=== PATIENT | female | born 1945 | race Hispanic/Latino ===

== ENCOUNTER 2020-02-21 06:28 | Observation (INO) | payer MEDICARE ==
[2020-02-17 08:44] LABS: BASOPHILS # (AUTO) 0.1 (0.0-0.1); BASOPHILS % 0.6 % (0.0-1.0); EOSINOPHILS # (AUTO) 0.1 (0.0-0.4); EOSINOPHILS % 1.4 % (0.0-6.0); HEMATOCRIT 43.3 % (34.2-44.1); HEMOGLOBIN 14.6 g/dL (12.0-16.0); LYMPHOCYTES # (AUTO) 2.2 (1.0-3.2); LYMPHOCYTES % 22.3 % (18.0-39.1); MEAN CORPUSCULAR HEMOGLOBIN 27.9 pg (28-32); MEAN CORPUSCULAR HGB CONC 33.7 g/dL (31-35); MEAN CORPUSCULAR VOLUME 82.8 fL (81-99); MONOCYTES # (AUTO) 0.7 (0.2-0.8); MONOCYTES % 6.7 % (4.4-11.3); NEUTROPHILS # (AUTO) 6.9 (2.1-6.9); NEUTROPHILS % 68.6 % (38.7-80.0); PLATELET COUNT 264 x10e3/uL (140-360); RED BLOOD COUNT 5.23 x10e6/uL (3.6-5.1); RED CELL DISTRIBUTION WIDTH 13.2 % (11.7-14.4)
[2020-02-17 09:04] LABS: ANION GAP 15.6 mmol/L (8-16); BLOOD UREA NITROGEN 12 mg/dL (7-26); BUN/CREATININE RATIO 14 (6-25); CALCIUM 8.7 mg/dL (8.4-10.2); CARBON DIOXIDE 24 mmol/L (22-29); CHLORIDE 104 mmol/L (98-107); CREATININE, SERUM 0.85 mg/dL (0.57-1.11); EST GLOMERULAR FILTRATION RATE > 60 ML/MIN (60-); GLUCOSE 199 mg/dL (74-118); POTASSIUM 3.6 mmol/L (3.5-5.1); SODIUM 140 mmol/L (136-145)
[~2020-02-21] VITALS: Ht 165.1 cm; Wt 101.6 kg
[~2020-02-21 06:28] MED LIST: AMLODIPINE BESYL5 MG PO; ASPIRIN81 MG PO; HYDROCHLOROTHIA25 MG PO; METFORMIN HCL500 MG PO; METOPROLOL SUCC50 MG PO; PRAVACHOL20 MG PO
[2020-02-21] MEDS ORDERED: CELECOXIB 200 MG CAP ONE (07:24)
[2020-02-21] MEDS ORDERED: GABAPENTIN 300 MG CAP ONE (07:24)
[2020-02-21] MEDS ORDERED: DEXAMETHASONE SOD PHOS 10 MG/1 ML VIAL ONE (07:24)
[2020-02-21] MEDS ORDERED: CEFAZOLIN SOD 1 GM/NS 50ML 100 ML IV ONE (07:25)
[2020-02-21] MEDS ORDERED: calcium PO (07:48)
[2020-02-21] MEDS ORDERED: VITAMIN B-121000 MCG PO (07:48)
[2020-02-21] MEDS ORDERED: VITAMIN D3250 MCG PO (07:49)
[2020-02-21] MEDS ORDERED: SODIUM CHLORIDE 0.9% 500ML 500 ML ONE (07:57)
[2020-02-21] MEDS ORDERED: VANCOMYCIN HCL 1,000 MG ONE (07:57)
[2020-02-21] MEDS ORDERED: TRANEXAMIC ACID 1,000 MG/10 ML ML ONE (07:57)
[2020-02-21] MEDS ORDERED: INSULIN REGULAR, HUMAN 100 UNIT/1 ML 3ML VIAL ONE (07:59)
[2020-02-21] MEDS ORDERED: ROPIVACAINE 246.25 MG, EPINEPHRINE HCL 1:1000 1ML 0.5 MG, CLONIDINE HCL 0.08 MG, KETORO... INJ ONE ×5 (08:00)
[2020-02-21] MEDS ORDERED: HYDROCODONE/APAP 7.5MG-325MG 1 EA TAB PO PRN (10:00)
[2020-02-21] MEDS ORDERED: HYDROCODONE/APAP 5MG-325MG TAB PO PRN (10:00)
[2020-02-21] MEDS ORDERED: DIPHENHYDRAMINE HCL INJ 50 MG/ML VIAL IV PRN (10:00)
[2020-02-21] MEDS ORDERED: KETOROLAC TROMETHAMINE 30 MG/ML VIAL IV PRN (10:00)
[2020-02-21] MEDS ORDERED: ONDANSETRON HCL INJ 2MG/ML 2ML 2 MG/ML VIAL IV PRN (10:00)
[2020-02-21] MEDS ORDERED: ACETAMINOPHEN 650 MG SUPP PR PRN (10:00)
[2020-02-21] MEDS ORDERED: DOCUSATE SODIUM 100 MG CAP PO PRN (10:00)
[2020-02-21] MEDS: SODIUM CHLORIDE 0.9% 1000ML 1,000 ML IV SCH ×2 (11:45→20:00)
[2020-02-21 11:48] VITALS: BP 105/63
[2020-02-21] MEDS ORDERED: ACETAMINOPHEN 1000 MG/100 ML IV PRN (12:00)
[2020-02-21] MEDS ORDERED: ROPIVACAINE 0.5% 5 MG/ML 30 ML SDV ONE (12:21)
[2020-02-21 13:00] VITALS: BP 105/63
[2020-02-21] MEDS ORDERED: DEXAMETHASONE SOD PHOS INJ 4 MG/ML VIAL ONE (13:20)
[2020-02-21] MEDS ORDERED: SEVOFLURANE INHAL SOLN 250 ML PEN BTL ONE (13:20)
[2020-02-21] MEDS ORDERED: FAMOTIDINE 20 MG/2 ML VIAL IV ONE (13:20)
[2020-02-21] MEDS ORDERED: ONDANSETRON HCL INJ 2MG/ML 2ML 2 MG/ML VIAL ONE (13:20)
[2020-02-21] MEDS ORDERED: KETOROLAC TROMETHAMINE 30 MG/ML VIAL ONE (13:20)
[2020-02-21] MEDS ORDERED: PROPOFOL IV EMULSION 10 MG/ML 20 ML VIAL ONE (13:20)
[2020-02-21] MEDS ORDERED: LIDOCAINE HCL 2% LOCAL INJ 5 ML SDV VIAL INJ ONE (13:20)
[2020-02-21] MEDS ORDERED: FENTANYL CITRATE/PF 100MCG/2 ML INJ ONE (13:29)
[2020-02-21] MEDS ORDERED: MIDAZOLAM HCL 2 MG/2 ML VIAL ONE (13:29)
[2020-02-21 15:43] VITALS: BP 157/84
[2020-02-21] MEDS ORDERED: DEXTROSE 50% SYRINGE 50 ML IV PRN (17:30)
[2020-02-21] MEDS: ASPIRIN 325 MG TAB PO SCH (17:38)
[2020-02-21] MEDS: CEFAZOLIN SOD 1 GM/NS 50ML 50 ML IV SCH ×2 (17:38→23:32)
[2020-02-21] MEDS: CELECOXIB 100 MG CAP PO SCH (17:39)
[2020-02-21] MEDS: INSULIN LISPRO 100 UNIT/1 ML 3ML VIAL SQ SCH ×2 (17:42→21:49)
[2020-02-21 20:01] VITALS: BP 132/77
[2020-02-21 20:23] VITALS: BP 132/77
[2020-02-21] MEDS ORDERED: ZOLPIDEM TARTRATE 5 MG TAB PO PRN (21:00)
[2020-02-21 23:54] VITALS: BP 122/65
[2020-02-22 04:59] VITALS: BP 140/72
[2020-02-22] MEDS: SODIUM CHLORIDE 0.9% 1000ML 1,000 ML IV SCH (05:25)
[2020-02-22 06:26] LABS: HEMATOCRIT 37.2 % (34.2-44.1); HEMOGLOBIN 12.3 g/dL (12.0-16.0)
[2020-02-22 07:30] VITALS: BP 131/83
[2020-02-22] MEDS ORDERED: METFORMIN HCL 500 MG TAB PO SCH (08:00)
[2020-02-22] MEDS ORDERED: CYANOCOBALAMIN 1,000 MCG TAB PO SCH (09:00)
[2020-02-22] MEDS ORDERED: CALCIUM CARBONATE 500 MG CHEWABLE TABS PO SCH (09:00)
[2020-02-22] MEDS ORDERED: CHOLECALCIFEROL 400 UNIT TAB PO SCH (09:00)
[2020-02-22] MEDS ORDERED: AMLODIPINE BESYLATE 5 MG TAB PO SCH (09:00)
[2020-02-22] MEDS: ASPIRIN 325 MG TAB PO SCH (09:10)
[2020-02-22] MEDS: CEFAZOLIN SOD 1 GM/NS 50ML 50 ML IV SCH (09:10)
[2020-02-22] MEDS: CELECOXIB 100 MG CAP PO SCH (09:10)
[2020-02-22 10:21] VITALS: BP 131/83
[2020-02-22] MEDS: INSULIN LISPRO 100 UNIT/1 ML 3ML VIAL SQ SCH ×2 (11:20→11:35)
[2020-02-22 11:27] VITALS: BP 126/78
[2020-02-22] MEDS ORDERED: ONDANSETRON HCL 4 MG ORAL DISINTEGRATING TAB PO PRN (12:15)
[2020-02-22] MEDS ORDERED: CELECOXIB 200 MG CAP PO SCH (17:00)
[2020-02-22] MEDS ORDERED: METOPROLOL SUCCINATE 50 MG TAB XL PO SCH (21:00)
[2020-02-22] MEDS ORDERED: PRAVASTATIN 20 MG TAB PO SCH (21:00)
== END 2020-02-22 12:17 | disposition home or self-care (01) ==
LOC: OR 06:28 → PACU V 10:08 → MED/SURG 10:46
PROVIDERS: ADMIT Specialist; ATTEND Specialist
DX: M17.0 Bilateral primary osteoarthritis of knee (principal); Z20.822 Contact with and (suspected) exposure to COVID-19
CPT/HCPCS: 27447; 36415 ×2; 71046; 73560; 80048; 82948; 85025; 86850; 86900; 86920; 97162; 97530; C1713; J0171; J0690; J1100; J1885; J2405; J2795; J3370; J7030; J7040; U0002; J1817